=== PATIENT | female | born 1945 | race Caucasian/White ===

== ENCOUNTER 2019-10-23 22:17 | Emergency (ER) | payer MEDICARE, BC ==
--- NOTE | 2019-10-23 23:24 | EDM.PDOC ---
<Cynthia Guerrero - Last Filed: 10/23/19 23:49> ED HPI GENERAL MEDICAL PROBLEM - General Chief Complaint: Chest Pain Stated Complaint: TROUBLE WITH BP,HEART RATE Time Seen by Provider: 10/23/19 22:50 - Related Data Allergies Allergy/AdvReac Type Severity Reaction Status Date / Time amoxicillin Allergy Rash Verified 10/23/19 22:30 doxycycline Allergy Rash Verified 10/24/19 00:16 levofloxacin [From Levaquin] Allergy Other Verified 10/23/19 22:30 Sulfa (Sulfonamide Allergy Hives Verified 10/23/19 22:30 Antibiotics) Home Meds: Home Meds Losartan/Hydrochlorothiazide [Losartan-HCTZ 100-12.5 MG] 0.5 tab PO DAILY [History] atorvaSTATin [Lipitor] 20 mg PO BEDTIME 10/23/19 [History] Course - Vital Signs Last Recorded V/S: Last Vital Signs Temp 98.2 F 10/23/19 22:40 Pulse 106 H 10/24/19 00:06 Resp 17 10/23/19 22:40 BP 178/88 H 10/24/19 00:06 Pulse Ox 100 10/23/19 22:40 - Orders/Labs/Meds Orders: Active Orders 24 hr Category Date Time Status EKG Documentation Completion [RC] ASDIRECTED Care 10/23/19 23:21 Active Chest 1V Frontal [CR] Stat Exams 10/24/19 Taken BABESIA MICROTI ANTIBODY PANEL Stat Lab 10/24/19 00:07 Received HUMAN GRANULOCYTIC [place]-HGE Stat Lab 10/24/19 00:07 Received LYME, TOTAL AB TEST/REFLEX Stat Lab 10/24/19 00:07 Received Sodium Chloride 0.9% [Saline Flush] Med 10/23/19 23:58 Active 10 ml FLUSH ASDIRECTED PRN Saline Lock Insert [OM.PC] Routine Oth 10/23/19 23:58 Ordered EKG 12 Lead [EK] Routine Ther 10/23/19 23:21 Ordered Medication Orders Sodium Chloride (Saline Flush) 10 ml FLUSH ASDIRECTED PRN PRN Reason: Keep Vein Open Last Admin: 10/24/19 00:06 Dose: 10 ml Labs: Laboratory Tests 10/23/19 10/23/19 10/23/19 Range/Units 22:49 22:49 22:49 WBC 7.8 (4.5-11.0) K/uL RBC 3.89 (3.30-5.50) M/uL Hgb 12.6 (12.0-15.0) g/dL Hct 39.2 (36.0-48.0) % MCV 101 H (80-98) fL MCH 32 H (27-31) pg MCHC 32 (32-36) % Plt Count 252 (150-400) K/uL Neut % (Auto) 43 (36-66) % Lymph % (Auto) 36 (24-44) % [place] % (Auto) 16 H (2-6) % Eos % (Auto) 5 H (2-4) % Baso % (Auto) 0 (0-1) % APTT (27.0-36.0) sec Sodium 138 L (140-148) mmol/L Potassium 3.5 L (3.6-5.2) mmol/L Chloride 103 (100-108) mmol/L Carbon Dioxide 26 (21-32) mmol/L Anion Gap 12.5 (5.0-14.0) mmol/L BUN 20 H (7-18) mg/dL Creatinine 1.1 H (0.6-1.0) mg/dL Est Cr Clr Drug Dosing 38.75 mL/min Estimated GFR (MDRD) 49 L (>60) Glucose 128 H (74-106) mg/dL Calcium 8.9 (8.5-10.1) mg/dL Magnesium (1.8-2.4) mg/dL Total Bilirubin 0.3 (0.2-1.0) mg/dL AST 20 (15-37) U/L ALT 30 (12-78) U/L Alkaline Phosphatase 45 L (46-116) U/L Troponin I 0.217 H* (0.000-0.056) ng/mL Total Protein 7.0 (6.4-8.2) g/dL Albumin 3.6 (3.4-5.0) g/dL Globulin 3.4 (2.3-3.5) g/dL Albumin/Globulin Ratio 1.1 L (1.2-2.2) TSH, Ultra Sensitive 1.434 (0.358-3.740) uIU/mL Urine Color (YELLOW) Urine Appearance (CLEAR) Urine pH (5.0-8.0) Ur Specific [place] (1.008-1.030) Urine Protein (NEGATIVE) mg/dL Urine Glucose (UA) (NEGATIVE) mg/dL Urine Ketones (NEGATIVE) mg/dL Urine Occult Blood (NEGATIVE) Urine Nitrite (NEGATIVE) Urine Bilirubin (NEGATIVE) Urine Urobilinogen (0.2-1.0) EU/dL Ur Leukocyte Esterase (NEGATIVE) Urine RBC (0-5) Urine WBC (0-5) Ur Epithelial Cells Amorphous Sediment Urine Bacteria Urine Mucus 10/23/19 10/23/19 10/23/19 Range/Units 22:49 22:49 23:13 WBC (4.5-11.0) K/uL RBC (3.30-5.50) M/uL Hgb (12.0-15.0) g/dL Hct (36.0-48.0) % MCV (80-98) fL MCH (27-31) pg MCHC (32-36) % Plt Count (150-400) K/uL Neut % (Auto) (36-66) % Lymph % (Auto) (24-44) % [place] % (Auto) (2-6) % Eos % (Auto) (2-4) % Baso % (Auto) (0-1) % APTT 23.3 L (27.0-36.0) sec Sodium (140-148) mmol/L Potassium (3.6-5.2) mmol/L Chloride (100-108) mmol/L Carbon Dioxide (21-32) mmol/L Anion Gap (5.0-14.0) mmol/L BUN (7-18) mg/dL Creatinine (0.6-1.0) mg/dL Est Cr Clr Drug Dosing mL/min Estimated GFR (MDRD) (>60) Glucose (74-106) mg/dL Calcium (8.5-10.1) mg/dL Magnesium 1.8 (1.8-2.4) mg/dL Total Bilirubin (0.2-1.0) mg/dL AST (15-37) U/L ALT (12-78) U/L Alkaline Phosphatase (46-116) U/L Troponin I (0.000-0.056) ng/mL Total Protein (6.4-8.2) g/dL Albumin (3.4-5.0) g/dL Globulin (2.3-3.5) g/dL Albumin/Globulin Ratio (1.2-2.2) TSH, Ultra Sensitive (0.358-3.740) uIU/mL Urine Color Yellow (YELLOW) Urine Appearance Slightly cloudy A (CLEAR) Urine pH 6.0 (5.0-8.0) Ur Specific [place] 1.025 (1.008-1.030) Urine Protein Negative (NEGATIVE) mg/dL Urine Glucose (UA) Negative (NEGATIVE) mg/dL Urine Ketones Negative (NEGATIVE) mg/dL Urine Occult Blood Trace-intact H (NEGATIVE) Urine Nitrite Negative (NEGATIVE) Urine Bilirubin Negative (NEGATIVE) Urine Urobilinogen 0.2 (0.2-1.0) EU/dL Ur Leukocyte Esterase Trace H (NEGATIVE) Urine RBC 0-5 (0-5) Urine WBC 0-5 (0-5) Ur Epithelial Cells Rare Amorphous Sediment Not seen Urine Bacteria Not seen Urine Mucus Not seen Meds: Medications Generic Name Dose Route Start Last Admin Trade Name Kristy PRN Reason Stop Dose Admin Sodium Chloride 10 ml 10/23/19 23:58 10/24/19 00:06 Saline Flush FLUSH 10 ml ASDIRECTED PRN Administration Keep Vein Open Discontinued Medications Generic Name Dose Route Start Last Admin Trade Name Kristy PRN Reason Stop Dose Admin Aspirin 324 mg 10/23/19 23:35 10/23/19 23:42 Aspirin PO 10/23/19 23:36 324 mg ONETIME ONE Administration Heparin Sodium (Porcine) 4,000 units 10/23/19 23:54 10/24/19 00:05 Heparin Sodium IVPUSH 10/23/19 23:55 4,000 units ONETIME ONE Administration Metoprolol Tartrate 5 mg/ 55 mls @ 100 mls/hr 10/23/19 23:47 10/24/19 00:16 Sodium Chloride IV 10/24/19 00:19 Not Given ONETIME ONE Metoprolol Tartrate 5 mg 10/23/19 23:56 10/24/19 00:06 Lopressor IVPUSH 10/23/19 23:57 5 mg ONETIME ONE Administration Departure - Departure Disposition: DC/Tfer to [facility] Clinical Impression: Elevated troponin level, Non Q wave myocardial infarction, Sinus tachycardia, Tick bite of chest wall, Erythema migrans (Lyme disease) Referrals: PCP,None [Primary Care Provider] - Forms: ED Department Discharge Additional Instructions: transfer to [facility] Sepsis Event Note - Focused Exam Vital Signs: Vital Signs Temp Pulse Pulse Resp BP BP Pulse Ox 10/24/19 00:06 106 H 178/88 H 10/23/19 22:40 98.2 F 119 H 17 164/84 H 100 10/23/19 22:37 98.2 F 119 H 17 164/84 H 100 Date Exam was Performed: 10/23/19 Time Exam was Performed: 23:49 - My Orders Last 24 Hours: My Active Orders 10/23/19 23:58 Sodium Chloride 0.9% [Saline Flush] 10 ml FLUSH ASDIRECTED PRN Saline Lock Insert [OM.PC] Routine 10/24/19 00:07 BABESIA MICROTI ANTIBODY PANEL Stat HUMAN GRANULOCYTIC [place]-HGE Stat LYME, TOTAL AB TEST/REFLEX Stat - Assessment/Plan Last 24 Hours: My Active Orders 10/23/19 23:58 Sodium Chloride 0.9% [Saline Flush] 10 ml FLUSH ASDIRECTED PRN Saline Lock Insert [OM.PC] Routine 10/24/19 00:07 BABESIA MICROTI ANTIBODY PANEL Stat HUMAN GRANULOCYTIC [place]-HGE Stat LYME, TOTAL AB TEST/REFLEX Stat <Saumya Salguero - Last Filed: 10/24/19 00:24> ED HPI GENERAL MEDICAL PROBLEM - General Source of Information: Reports: Patient, RN, RN Notes Reviewed History Limitations: Reports: No Limitations - History of Present Illness INITIAL COMMENTS - FREE TEXT/NARRATIVE: around 16:00, patient was walking out of [employer] and developed chest pressure- mid sternal region. She states that it was not "painful" but was aware of her heartbeat and felt it to be racing. Denies any nausea or diaphoresis. She got in the truck with her spouse and they went home. Patient states that she "still didn't feel herself" once they got home ([place] on [address]) and she tried to take her blood pressure on her home machine. She was unable to get a BP reading- it kept giving her an "error" message. Siri then took 3 Tums wondering if she was having heartburn (she has not history of reflux/ GERD). She cooked supper and ate it without problems- she consumes 2 glasses of wine daily- which she had with her supper. After eating, her and her watched a movie. She admits to feeling anxious about the inability to get a BP reading and just not feeling herself. Siri continued to be aware of her heart rate ( no pressure though) and her Apple watch registered a "fast pulse" and the EKG function on the Apple watch stated "erratic heart rate" and advised getting treatment. She is currently not feeling any pressure and is not aware of her heart rate. She has not had any heart tests or heart history besides HTN and hyperlipidemia. Her sister had a [place] at age 60 or 61 Onset: Today Onset Time: 16:00 Location: Reports: Chest Quality: Reports: Pressure Severity: Moderate Improves with: Reports: Rest Associated Symptoms: Reports: No Other Symptoms chest pressure Pain Score (Numeric/FACES): 4 Past Medical History HEENT History: Reports: Cataract Cardiovascular History: Reports: High Cholesterol, Hypertension CHIEF WARDEN History: Reports: , Other (See Below) Other CHIEF WARDEN History: still born Musculoskeletal History: Reports: Arthritis Oncologic (Cancer) History: Reports: Basal Cell Carcinoma, Squamous Cell Carcinoma Dermatologic History: Reports: Other (See Below) Other Dermatologic History: squamas and basal skin cancer removed - Infectious Disease History Infectious Disease History: Reports: Chicken Pox, Measles, Mumps - Past Surgical History HEENT Surgical History: Reports: Eye Surgery, Other (See Below) Other HEENT Surgeries/Procedures: Surgery for drooping eyelids Female Surgical History: Reports: Other (See Below) Other Female Surgeries/Procedures: tube and ovary removed, side unknown. benign beezor removed Neurological Surgical History: Reports: Other (See Below) Other Neurological Surgeries/Procedures: cynovial cyst removed from between L3 and L4 Social & Family History - Tobacco Use Smoking Status *Q: Never Smoker Second Hand Smoke Exposure: No - Caffeine Use Caffeine Use: Reports: Coffee - Recreational Drug Use Recreational Drug Use: No ED ROS GENERAL - Review of Systems Review Of Systems: See Below Constitutional: Reports: No Symptoms HEENT: Reports: No Symptoms Respiratory: Reports: No Symptoms Cardiovascular: Reports: Other (chest pressure) Endocrine: Reports: No Symptoms GI/Abdominal: Reports: No Symptoms : Reports: No Symptoms Musculoskeletal: Reports: No Symptoms Skin: Reports: Other (tick bite with erythema surrounding on right lateral chest wall) Neurological: Reports: No Symptoms Psychiatric: Reports: No Symptoms Hematologic/Lymphatic: Reports: No Symptoms Immunologic: Reports: No Symptoms ED EXAM, GENERAL - Physical Exam Exam: See Below Exam Limited By: No Limitations General Appearance: Alert, No Apparent Distress Head: Atraumatic, Normocephalic Respiratory/Chest: Lungs Clear, Normal Breath Sounds Cardiovascular: Normal Peripheral Pulses, Regular Rate, Rhythm, No Murmur Peripheral Pulses: 2+: Radial (L), Radial (R) GI/Abdominal: Normal Bowel Sounds, Soft, Non-Tender, No Organomegaly, No Distention, No Mass (Female) Exam: Deferred Back Exam: Normal Inspection Extremities: Normal Inspection, No Pedal Edema Neurological: Alert, Oriented Psychiatric: Normal Affect, Normal Mood Skin Exam: Warm, Dry, Other (3 cm round raised erythematous lesion with a central tick bite (pulled off saturday am) with a 2.25 cm round raised erythematous lesion to the right of tick bite. ) Lymphatic: No Adenopathy EKG INTERPRETATION EKG Date: 10/23/19 Time: 22:28 Rhythm: Other (sinus tachycardia) Rate (Beats/Min): 118 Comparison: NA - No Prior EKG Course - Orders/Labs/Meds Meds: Medications Generic Name Dose Route Start Last Admin Trade Name Freq PRN Reason Stop Dose Admin Sodium Chloride 10 ml 10/23/19 23:58 10/24/19 00:06 Saline Flush FLUSH 10 ml ASDIRECTED PRN Administration Keep Vein Open Discontinued Medications Generic Name Dose Route Start Last Admin Trade Name Freq PRN Reason Stop Dose Admin Aspirin 324 mg 10/23/19 23:35 10/23/19 23:42 Aspirin PO 10/23/19 23:36 324 mg ONETIME ONE Administration Heparin Sodium (Porcine) 4,000 units 10/23/19 23:54 10/24/19 00:05 Heparin Sodium IVPUSH 10/23/19 23:55 4,000 units ONETIME ONE Administration Metoprolol Tartrate 5 mg/ 55 mls @ 100 mls/hr 10/23/19 23:47 10/24/19 00:16 Sodium Chloride IV 10/24/19 00:19 Not Given ONETIME ONE Metoprolol Tartrate 5 mg 10/23/19 23:56 10/24/19 00:06 Lopressor IVPUSH 10/23/19 23:57 5 mg ONETIME ONE Administration - Re-Assessments/Exams Free Text/Narrative Re-Assessment/Exam: 10/23/19 23:31 troponin elevated at 0.217. Dr Guerrero notified Free Text/Narrative Re-Assessment/Exam: 10/23/19 23:50 Dr. Guerrero called for transfer to [facility]. EKG faxed to [facility] for review Free Text/Narrative Re-Assessment/Exam: 10/24/19 00:05 tick studies ordered for recent tick bite. will need follow-up 10/24/19 00:[address] [place] [facility] Departure - Departure Time of Disposition: 00:23 Reason for Transfer *Q: Primary PCI Indicated Condition: Serious Sepsis Event Note - Evaluation Sepsis Screening Result: No Definite Risk - Focused Exam Date Exam was Performed: 10/24/19 Time Exam was Performed: 00:23 - My Orders Last 24 Hours: My Active Orders 10/23/19 23:58 Sodium Chloride 0.9% [Saline Flush] 10 ml FLUSH ASDIRECTED PRN Saline Lock Insert [OM.PC] Routine 10/24/19 00:07 BABESIA MICROTI ANTIBODY PANEL Stat HUMAN GRANULOCYTIC [place]-HGE Stat LYME, TOTAL AB TEST/REFLEX Stat - Assessment/Plan Last 24 Hours: My Active Orders 10/23/19 23:58 Sodium Chloride 0.9% [Saline Flush] 10 ml FLUSH ASDIRECTED PRN Saline Lock Insert [OM.PC] Routine 10/24/19 00:07 BABESIA MICROTI ANTIBODY PANEL Stat HUMAN GRANULOCYTIC [place]-HGE Stat LYME, TOTAL AB TEST/REFLEX Stat Plan: transfer to [facility] for cardiology
[2019-10-23] MEDS ORDERED: Aspirin 81 MG Tab.Chew PO ONE (23:35)
[2019-10-23] MEDS ORDERED: Metoprolol Tartrate 5 MG in Sodium Chloride 0.9% 50 ML IV ONE (23:47)
[2019-10-23] MEDS ORDERED: Heparin Sodium 5,000 Units/ML Vial IVPUSH ONE (23:54)
[2019-10-23] MEDS ORDERED: Metoprolol Tartrate 5 MG/5 ML SDV IVPUSH ONE (23:56)
[2019-10-23] MEDS ORDERED: Sodium Chloride 0.9% 10 ML Syringe FLUSH PRN (23:58)
--- NOTE | 2019-10-26 09:20 | CR ---
CHEST: Portable 10/24/2019 at 12:05 AM CLINICAL HISTORY:Elevated TROPO COMPARISON:None FINDINGS: The heart size, pulmonary vascularity and hilar structures are normal. No infiltrate effusion or pneumothorax is seen. There are atherosclerotic changes in the aorta. IMPRESSION: No acute cardiopulmonary process.
[2019-10-28 11:12] LABS: LYME IGG/IGM AB <0.91 ISR (0.00-0.90)
[2019-10-28 14:11] LABS: HGE IGG TITER Negative (Neg:<1:64); HGE IGM TITER Negative (Neg:<1:20)
[2019-10-28 16:12] LABS: BABESIA MICROTI IGG <1:10 (Neg:<1:10); BABESIA MICROTI IGM <1:10 (Neg:<1:10)
== END 2019-10-24 01:24 | disposition hospice, inpatient (51) ==
LOC: JP.ED 22:17
DX: I21.4 Non-ST elevation (NSTEMI) myocardial infarction (principal); R00.0 Tachycardia, unspecified; A69.20 Lyme disease, unspecified; S20.369A Insect bite (nonvenomous) of unspecified front wall of thorax, initial encounter; E78.00 Pure hypercholesterolemia, unspecified; I10 Essential (primary) hypertension; R79.89 Other specified abnormal findings of blood chemistry; Z88.1 Allergy status to other antibiotic agents; Z88.2 Allergy status to sulfonamides; W57.XXXA Bitten or stung by nonvenomous insect and other nonvenomous arthropods, initial encounter
CPT/HCPCS: 36415; 71045; 80053; 81001; 83735; 84443; 84484; 85025; 85730; 86666; 86753; 93005; 96374; 96375; 99285; A9270; J1644; J3490; 86618; 93010